=== PATIENT | male | born 1945 | race Caucasian/White ===

== ENCOUNTER 2021-01-09 10:40 | Day surgery (SDC) | payer MEDICARE, OTHER ==
[2021-01-04 15:54] LABS: BASOPHILS # (AUTO) 0.1 X10'3 (0-0.2); BASOPHILS % (AUTO) 0.8 % (0-1); EOSINOPHILS # (AUTO) 0.1 X10'3 (0-0.9); EOSINOPHILS % (AUTO) 1.7 % (0-6); LYMPHOCYTES # (AUTO) 1.3 X10'3 (1.1-4.8); LYMPHOCYTES % (AUTO) 20.7 % (21-51); MEAN CORPUSCULAR HGB CONC 33.7 g/dL (33.0-36.5); MEAN CORPUSCULAR VOLUME 94.9 FL (78-98); MEAN PLATELET VOLUME 8.7 FL (7.4-10.4); MONOCYTES # (AUTO) 0.6 X10'3 (0-0.9); MONOCYTES % (AUTO) 9.3 % (2-12); NEUTROPHILS # (AUTO) 4.4 X10'3 (1.8-7.7); NEUTROPHILS % (AUTO) 67.5 % (42-75); PRE OP HEMATOCRIT 41.7 % (42.0-52.0); PRE OP HEMOGLOBIN 14.1 g/dL (14.0-17.9); PRE OP PLATELET COUNT 183 X10'3 (140-440); RED CELL DISTRIBUTION WIDTH 13.7 % (11.5-14.5)
[2021-01-04 16:10] LABS: ALBUMIN 3.1 G/DL (3.4-5.0); ALBUMIN/GLOBULIN RATIO 0.8 (1.1-1.5); ALKALINE PHOSPHATASE 84 IU/L (46-116); BLOOD UREA NITROGEN 23 MG/DL (7-18); BUN/CREATININE RATIO 22.5 (5.4-32.0); CALCIUM 8.5 MG/DL (8.5-10.1); CHLORIDE 108 MMOL/L (99-107); CREATININE 1.02 MG/DL (0.60-1.10); PRE OP ALT 29 U/L (30-65); PRE OP ANION GAP 4 (8-16); PRE OP AST 23 U/L (10-37); PRE OP BILIRUB, TOTAL 0.9 MG/DL (0.0-1.0); PRE OP GLUCOSE 100 MG/DL (70-104); PRE OP POTASSIUM 4.9 MMOL/L (3.4-5.1); PRE OP SODIUM 145 MMOL/L (135-145); TOTAL CARBON DIOXIDE 33.4 MMOL/L (24-32); TOTAL PROTEIN 6.9 G/DL (6.4-8.2); eGFR 71 ML/MIN
[~2021-01-09] VITALS: Ht 177.8 cm; Wt 85.4 kg
[2021-01-09] VITALS (10 sets, daily range): BP systolic 105–140; BP diastolic 66–92
[~2021-01-09 10:40] MED LIST: NO HOME MEDS; famotidine 20mg tablet PO ONE; ringers solution, lacted 1,000 ML IV SCH
[2021-01-09] MEDS ORDERED: cefazolin/dext.iso 2gm/100ml 100 ML IV ONE (11:20)
[2021-01-09] MEDS ORDERED: ROPIVAcaine 0.5% (5mg/ml) 30ml vial ONE (12:23)
[2021-01-09] MEDS ORDERED: fentaNYL/PF 50MCG/1 ML 2ML syringe ONE (12:25)
[2021-01-09] MEDS ORDERED: sevoflurane 250ml liquid IH ONE (12:25)
[2021-01-09] MEDS ORDERED: LIDOcaine 1%/PF 5ML 10 MG/ML VIAL ONE (12:56)
[2021-01-09] MEDS ORDERED: propofol inj 20 ML IV ONE (12:56)
[2021-01-09] MEDS ORDERED: acetaminophen 1,000mg/100ml IV 100 ML IV ONE (12:56)
[2021-01-09] MEDS ORDERED: ondansetron/PF 4mg/2ml inj ONE (12:56)
[2021-01-09] MEDS ORDERED: dexamethasone sod phosphate 4mg/ml inj. ONE (12:56)
--- NOTE | 2021-01-09 13:29 | NUR ---
Received from OR via , accompanied by Anesthesiologist DR FERNANDEZ and report given by Anesthesiolgist. PT PRESENTS WITH 20 G LEFT HAND, DRSSING ON RIGHT ANKLE DRY AND INTACT. VSS, Addendum: 01/09/21 at 1344 by Sandra Champagne RN, RN Amended: Links added.
[2021-01-09] MEDS ORDERED: ondansetron/PF 4mg/2ml inj IV PRN (13:40)
[2021-01-09] MEDS ORDERED: HYDROmorphone/PF 0.2 MG/ML SYRINGE IV PRN ×2 (13:40)
[2021-01-09] MEDS ORDERED: ringers solution, lacted 1,000 ML IV SCH (13:40)
[2021-01-09] MEDS ORDERED: morphine 2 MG/ML inj. syringe IV PRN (13:40)
--- NOTE | 2021-01-09 14:49 | NUR ---
PATIENT A&OX4, DENIES PAIN, V/S STABLE.. I HAVE REVIEWED D/C ORDERS WITH PATIENT AND HIS FAMILY AND THEY HAVE VERBALIZED UNDERSTANDING. PATIENT D/C HOME WITH ALL BELONGINGS AND GAVE TRANSPORT. Addendum: 01/09/21 at 1501 by Sandra Champagne RN, RN Amended: Links added.
== END 2021-01-09 14:49 | disposition home or self-care (01) ==
LOC: PAS 10:40
PROVIDERS: ATTEND Orthopaedic Surgery
DX: S82.61XA Displaced fracture of lateral malleolus of right fibula, initial encounter for closed fracture (principal); I48.91 Unspecified atrial fibrillation; G89.18 Other acute postprocedural pain; Z20.822 Contact with and (suspected) exposure to COVID-19; Z79.899 Other long term (current) drug therapy; Z98.890 Other specified postprocedural states; W19.XXXA Unspecified fall, initial encounter; Y93.89 Activity, other specified; Y92.89 Other specified places as the place of occurrence of the external cause; Y99.8 Other external cause status
CPT/HCPCS: 27792; 36415; 64450; 73600; 76000; 76942; 80053; 82948; 85025; 93005; A6222; C1713; J0131; J1100; J2405; J2704; J3010; J7120; L4360; U0003; U0005; Z7506; Z7508; Z7512; A4618; A6449; A7000; J2795